=== PATIENT | female | born 1965 | race Two or more races ===

== ENCOUNTER 2021-04-09 18:30 | Emergency (ER) | payer OTHER ==
[2021-04-09 18:49] VITALS: TEMP 98.2; BMI 31.8
[2021-04-09] MEDS ORDERED: ONDANSETRON 4 MG/2 ML VIAL IVPUSH ONE (20:51)
[2021-04-09] MEDS ORDERED: morphine CARPU-JECT 4 MG/1 ML DISP.SYRIN IVPUSH ONE (20:51)
[2021-04-09] MEDS ORDERED: SODIUM CHLORIDE 1,000 ML IV STA (20:51)
[2021-04-09 21:51] LABS: URINE APPEARANCE CLEAR; URINE BILIRUBIN NEGATIVE (NEGATIVE); URINE COLOR YELLOW; URINE GLUCOSE (UA) NEGATIVE (NEGATIVE); URINE KETONE NEGATIVE (NEGATIVE); URINE LEUK ESTERASE NEGATIVE (NEGATIVE); URINE NITRITE NEGATIVE (NEGATIVE); URINE PROTEIN NEGATIVE (NEGATIVE)
[2021-04-09 21:54] LABS: HCG,QUALITATIVE URINE Negative
[2021-04-09] MEDS ORDERED: morphine SULFATE 4 MG/ML VIAL ONE (21:55)
[2021-04-09] MEDS ORDERED: ONDANSETRON 4 MG/2 ML VIAL ONE (21:56)
[2021-04-09 22:31] LABS: BASO % 0.3 % (0-2.0); EOS % 5.7 % (0-4.5); HEMATOCRIT 37.6 % (32.4-45.2); HEMOGLOBIN 12.2 GM/dL (10.7-15.3); LYMPH % 25.1 % (8-40); MCH 27.2 pg (25.7-33.7); MCHC 32.5 g/dl (32.0-36.0); MEAN CELL VOLUME 83.7 fl (80-96); MEAN PLT VOLUME 9.1 fl (7.5-11.1); MONO % 6.6 % (3.8-10.2); NEUT % 62.3 % (42.8-82.8); PLATELET COUNT 285 10^3/uL (134-434); RDW 14.5 % (11.6-15.6); WHITE BLOOD COUNT 9.1 K/mm3 (4.0-10.0)
[2021-04-09 22:51] LABS: ALBUMIN 3.8 g/dl (3.4-5.0); BLOOD UREA NITROGEN 11.7 mg/dL (7-18)
[2021-04-09 22:54] LABS: CREATININE 0.8 mg/dL (0.55-1.3)
[2021-04-09 22:56] LABS: BILIRUBIN,TOTAL 0.4 mg/dL (0.2-1); TOT PROT 7.7 g/dl (6.4-8.2)
[2021-04-09 23:30] VITALS: BP 131/77; PULSE 82
== END 2021-04-10 00:58 | disposition home or self-care (01) ==
LOC: JER 18:30
PROC: 3E033NZ Introduction of Analgesics, Hypnotics, Sedatives into Peripheral Vein, Percutaneous Approach (ICD-10-PCS; principal; 2021-04-09)
PROC: 3E033GC Introduction of Other Therapeutic Substance into Peripheral Vein, Percutaneous Approach (ICD-10-PCS; 2021-04-09)
PROC: 3E0337Z Introduction of Electrolytic and Water Balance Substance into Peripheral Vein, Percutaneous Approach (ICD-10-PCS; 2021-04-09)
DX: N70.11 Chronic salpingitis (principal)
CPT/HCPCS: 36415; 76830-TC; 80053; 81003; 84703; 85025; 87086; 87491; 87591; 99284-25

== ENCOUNTER 2022-08-17 21:15 | Emergency (ER) | payer OTHER ==
[2022-08-17 21:50] VITALS: BP 130/85; PULSE 96; RESP 20; TEMP 97.6; BMI 28.1
[2022-08-18] MEDS ORDERED: ALBUTEROL SO4 2.5/IPRATROPIUM 0.5 INH SOL 3 ML VIAL.NEB. NEB ONE (00:19)
== END 2022-08-18 02:36 | disposition home or self-care (01) ==
LOC: JER 21:15
PROC: 3E0F7GC Introduction of Other Therapeutic Substance into Respiratory Tract, Via Natural or Artificial Opening (ICD-10-PCS; principal; 2022-08-17)
DX: U07.1 COVID-19 (principal)
CPT/HCPCS: 0241U-QW; 99283-25

== ENCOUNTER 2023-12-14 23:38 | Emergency (ER) | payer OTHER ==
[2023-12-14 23:52] VITALS: TEMP 97.9; BMI 28.1
[2023-12-15] MEDS ORDERED: FAMOTIDINE 20 MG/50 ML IVPB 20 MG/50 ML MG IVPB ONE (00:23)
[2023-12-15] MEDS ORDERED: MAG HYDROX/AL HYDROX/SIMETH 30 ML UNIT-DOSE CUP ONE (00:23)
[2023-12-15 00:46] LABS: BASO % 0.9 % (0-2.0); EOS % 7.3 % (0-4.5); HEMATOCRIT 37.9 % (32.4-45.2); HEMOGLOBIN 12.5 GM/dL (10.7-15.3); LYMPH % 34.6 % (8-40); MCH 27.7 pg (25.7-33.7); MCHC 32.9 g/dl (32.0-36.0); MEAN CELL VOLUME 84.2 fl (80-96); MEAN PLT VOLUME 9.3 fl (7.5-11.1); MONO % 5.9 % (3.8-10.2); NEUT % 51.3 % (42.8-82.8); PLATELET COUNT 308 10^3/uL (134-434); RDW 14.2 % (11.6-15.6); WHITE BLOOD COUNT 7.3 K/mm3 (4.0-10.0)
[2023-12-15] MEDS: MAG HYDROX/AL HYDROX/SIMETH 30 ML UNIT-DOSE CUP PO ONE (00:48)
[2023-12-15] MEDS: FAMOTIDINE 20 MG/50 ML IVPB 20 MG/50 ML MG IVPB ONE (00:48)
[2023-12-15] MEDS ORDERED: ACETAMINOPHEN INJECTION 100 ML IVPB ONE (00:51)
[2023-12-15] MEDS: ACETAMINOPHEN 1000 MG/100 ML BAG IVPB ONE (01:09)
[2023-12-15 01:11] LABS: CALCIUM 8.8 mg/dL (8.5-10.1)
[2023-12-15 01:12] LABS: ALBUMIN 3.7 g/dl (3.4-5.0); BLOOD UREA NITROGEN 20.5 mg/dL (7-18); MAGNESIUM 1.7 mg/dL (1.8-2.4)
[2023-12-15 01:17] LABS: BILIRUBIN,TOTAL 0.2 mg/dL (0.2-1); TOT PROT 7.5 g/dl (6.4-8.2)
[2023-12-15 01:18] LABS: INR 1.14 (0.83-1.09); PROTHROMBIN TIME (PATIENT) 13.2 SEC (9.7-13.0)
[2023-12-15 01:21] LABS: ACTIVATED PTT 35.3 SECONDS (25.2-36.5)
[2023-12-15] MEDS ORDERED: MAGNESIUM SULFATE IN WATER 2 GM/50 ML IVPB IVPB ONE (01:59)
[2023-12-15] MEDS: MAGNESIUM SULFATE IN WATER 2 GM/50 ML IVPB IVPB ONE (02:13)
[2023-12-15] MEDS: SODIUM CHLORIDE 0.9% 500 ML INFUS.BAG IV ONE (02:13)
[2023-12-15 02:58] VITALS: BP 124/79; PULSE 81; RESP 20
== END 2023-12-15 03:04 | disposition home or self-care (01) ==
LOC: JER 23:38
PROC: 3E033GC Introduction of Other Therapeutic Substance into Peripheral Vein, Percutaneous Approach (ICD-10-PCS; principal; 2023-12-15)
PROC: 3E033GC Introduction of Other Therapeutic Substance into Peripheral Vein, Percutaneous Approach (ICD-10-PCS; 2023-12-15)
PROC: 3E030NZ Introduction of Analgesics, Hypnotics, Sedatives into Peripheral Vein, Open Approach (ICD-10-PCS; 2023-12-15)
DX: R07.89 Other chest pain (principal); R42 Dizziness and giddiness; M54.2 Cervicalgia; M25.511 Pain in right shoulder; M25.512 Pain in left shoulder; J32.9 Chronic sinusitis, unspecified; B34.9 Viral infection, unspecified; Z20.822 Contact with and (suspected) exposure to COVID-19
CPT/HCPCS: 0241U-QW; 36415; 70450-TC; 71046-TC-FY; 80053; 83735; 84484; 85025; 85610; 85730; 93005; 93010; 96365; 96367; 96375; 99285-25; J0131